=== PATIENT | female | born 1985 | race Two or more races ===

== ENCOUNTER → 2024-04-16 | Outpatient (CLI) | payer OTHER, SELFPAY ==
[2024-04-16 07:32] LABS: Misc Send Out* See Sep Rpt
[2024-04-16 09:25] LABS: Basophils % (Auto) 1 % (0-2.5); Eosinophils # (Auto) 0.1 Thou/mm3 (0.0-0.5); Eosinophils % (Auto) 2 % (0-10); Hemoglobin 12.7 g/dL (12.0-16.0); Immature Granulocytes % (Auto) 1 % (0-0); Immature Granulocytes Auto 0.04 Thou/mm3 (0.00-0.00); Lymphocytes # (Auto) 2.2 Thou/mm3 (1.0-4.8); Lymphocytes % (Auto) 34 % (10-50); Mean Corpuscular HGB Conc 32.6 g/dl (31.0-37.0); Mean Corpuscular Volume 86 fL (80-100); Monocytes # (Auto) 0.2 Thou/mm3 (0.0-0.8); Monocytes % (Auto) 3 % (0-12); Neutrophils % (Auto) 60 % (37-80); Nucleated Red Blood Cell % 0 /100 WBC (0); Platelet Count 312 Thou/mm3 (140-440); RDW Standard Deviation 48.8 fL (36.4-46.3); Red Blood Count 4.53 Miln/mm3 (4.00-5.20); White Blood Count 6.6 Thou/mm3 (3.6-11.0)
[2024-04-16 09:33] LABS: Parathyroid Hormone Intact 71.8 pg/ml (18.5-88.0)
[2024-04-16 09:34] LABS: Ferritin 12 ng/mL (7.3-270.7); Total Iron Binding Capacity 322 mcg/dL (250-425)
[2024-04-16 09:36] LABS: Alanine Aminotransferase 12 U/L (10-49); Albumin, Serum 4.2 gm/dL (3.5-5.0); Albumin/Globulin Ratio 1.4 (1.2-2.2); Alkaline Phosphatase 94 U/L (46-116); Anion Gap 7 (7-16); Aspartate Amino Transferase 20 U/L (0-34); BUN/Creatinine Ratio 15 Ratio (12-20); Bilirubin,Total 0.4 mg/dL (0.3-1.2); Blood Urea Nitrogen 9 mg/dL (9-23); Calcium 9.1 mg/dL (8.3-10.6); Calcium (Corrected) 9.1 mg/dL (8.5-10.1); Cardiac Risk Estimate 2.9 RATIO (3.7-5.6); Chloride 105 mMol/L (98-107); Cholesterol 123 mg/dL (132-200); Creatinine (Component) 0.6 mg/dL (0.6-1.3); Globulin 2.9 gm/dL (2.3-3.5); Glucose 87 mg/dL (74-106); HDL Cholesterol 42 mg/dL (40-60); LDL Cholesterol,Calculated 62 mg/dL (0-130); Osmolality,Calculated 277 (275-295); Potassium 3.5 mMol/L (3.4-5.1); Sodium 140 mMol/L (136-145); Thyroid Stimulating Hormone 1.49 uIU/mL (0.55-4.78); Total Protein 7.1 gm/dL (5.7-8.2); Triglycerides 94 mg/dL (30-150); eGFR > 60 See Note
[2024-04-16 09:49] LABS: Folate > 24.00 ng/mL (>5.38); Vitamin B12 1362 pg/mL (211-911)
[2024-04-23 06:52] LABS: Vitamin B1 (Thiamine)* 15 nmol/L (8-30); Vitamin B6, Plasma* 35.9 ng/mL (2.1-21.7)
[2024-04-25 06:31] LABS: Ceruloplasmin* 26 mg/dL (14-48); Copper* 99 mcg/dL (70-175); Direct LDL* 67 mg/dL (<100); Vitamin D, 25-OH, D2 5 ng/mL; Vitamin D, 25-OH, D3 26 ng/mL; Vitamin D, 25-OH, Total 31 ng/mL (30-100); Zinc, Plasma* 79 mcg/dL (60-130)
== END | disposition home or self-care (01) ==
LOC: COPL 07:03
PROVIDERS: PCP Family Medicine; Referring Provider Surgery; Visit Provider Surgery
DX: E56.9 Vitamin deficiency, unspecified (principal); K91.2 Postsurgical malabsorption, not elsewhere classified; J45.909 Unspecified asthma, uncomplicated; E66.811 Obesity, class 1; Z98.84 Bariatric surgery status; E66.9 Obesity, unspecified; E78.49 Other hyperlipidemia; D53.9 Nutritional anemia, unspecified; D50.9 Iron deficiency anemia, unspecified; Z13.21 Encounter for screening for nutritional disorder; E11.9 Type 2 diabetes mellitus without complications; Z13.1 Encounter for screening for diabetes mellitus; E55.9 Vitamin D deficiency, unspecified; D53.1 Other megaloblastic anemias, not elsewhere classified; E53.8 Deficiency of other specified B group vitamins
CPT/HCPCS: 36415; 80053; 80061; 82306; 82390; 82525; 82607; 82728; 82746; 83036; 83550; 83721; 83970; 84207; 84425; 84443; 84630; 85025

== ENCOUNTER → 2024-06-13 | Outpatient (CLI) | payer OTHER, SELFPAY ==
[2024-06-13 11:48] LABS: Misc Send Out* See Sep Rpt
[2024-06-22 05:05] LABS: Immunoglobulin A 373 mg/dL (47-310); Immunoglobulin G 1306 mg/dL (600-1640)
[2024-06-22 06:41] LABS: Immunoglobulin M 105 mg/dL (50-300)
== END | disposition home or self-care (01) ==
LOC: COPL 11:28
PROVIDERS: PCP Family Medicine; Referring Provider Physician Assistant; Visit Provider Physician Assistant
DX: J31.0 Chronic rhinitis (principal)
CPT/HCPCS: 36415; 82784

== ENCOUNTER 2025-03-27 02:26 | Observation (INO) | payer OTHER, BC, SELFPAY ==
[2025-03-27] VITALS (22 sets, daily range): BP systolic 98–128; BP diastolic 53–83; PULSE 63–96; RESP 14–99; TEMP 36.4–37.1; O2SAT 96–100; BMI 32.0; BMI 31.8
--- NOTE | 2025-03-27 03:04 | PD.EDADULT ---
ED General RME/HPI General Chief complaint: General Adult/Misc Complain Stated complaint: POSSIBLE FELL, LAC TO CHIN Time Seen by Provider: 03/27/25 03:04 Arrival date/time: 03/27/25 02:26 Limitations: no limitations RME / HPI RME / HPI narrative: Dr. Fall?s Main ED Evaluation: 40yo female who had a tummy tuck done at [facility] yesterday afternoon presents to the ED for a chief complaint of possible syncope. Patient states she was using the restroom when she started to feel lightheaded. Patient is not sure what happened, but next thing she remembers, she was laying in her bed and noticed she had a laceration to her chin. reports the patient was asking repetitive questions for a few minutes. Patient denies any chest pain, abdominal pain, shortness of breath, N/V/D, dysuria, or any other associated symptoms. Other PSH includes gastric bypass. Patient is currently menstruating. Patient was told her drains should be emptied every 2-3 hours and she has not had to empty them out more frequently. NKA. Of note, patient is supposed to start taking Eliquis later today. Related Data Home Medications ?Medication ?Instructions ?Recorded ?Confirmed vits no.[id number]-ferrous 1 tab PO DAILY 09/17/17 03/03/18 fumarate 28 mg-folic acid 800 mcg tablet () Allergies Allergy/AdvReac Type Severity Reaction Status Date / Time No Known Allergies Allergy Verified 03/27/25 02:27 Review of Systems Review of Systems Systems Reviewed: All systems reviewed, normal except as documented ED Exam General Limitations: Present no limitations General appearance: Present alert and in no apparent distress Head Head exam: Present other (1.5 cm laceration to the bottom of the chin with minimal bleeding with tenderness to palpation) Eye Eye exam: Present normal appearance, PERRL and EOMI ENT ENT exam: Present normal exam, normal oropharynx and mucous membranes moist Neck Neck exam: Present normal inspection, full ROM and trachea midline Chest Chest inspection: Present normal inspection and symmetric chest wall rise Respiratory Respiratory exam: Present normal lung sounds bilaterally Cardiovascular Cardiovascular exam: Present regular rate, normal rhythm and normal heart sounds Abdominal Exam Abdominal exam: Present soft and other (surgical site noted at the umbilicus; surgical site from hip to hip with dermabond and steri strips in place with drains at the lateral sites in place with bloody drainage; 2 puncture holes into the upper abdomen noted with a pain pump in place) Extremities Exam Extremities exam: Present normal inspection and full ROM; Absent pedal edema Back Exam Back exam: Present normal inspection and full ROM Neurological Exam Neurological exam: Present alert, oriented X3, CN II-XII intact and other (GCS 15) Psychiatric Psychiatric exam: Present normal affect and normal mood Skin Skin exam: Present warm, dry, intact and normal color Course Quality Measures none Orders Category Date Time Status EKG (ED ONLY) *Do not use* NOW Care 03/27/25 03:21 Completed Consult to Cardiology Stat Cons 03/27/25 05:[address] head/brain wo con Stat Exams 03/27/25 03:20 Taken EKG (ED Only) Stat Exams 03/27/25 03:21 Draft CBC Stat Lab 03/27/25 03:24 Completed CK [Creatine Kinase] Stat Lab 03/27/25 03:24 Completed CMP [Comprehensive Metabolic Panel] Stat Lab 03/27/25 03:24 Completed HCG,Qualitative Serum Stat Lab 03/27/25 03:24 Completed INR [Prothrombin Time with INR] Stat Lab 03/27/25 03:24 Completed Lactic Acid [Lactate (Lactic Acid)] Stat Lab 03/27/25 03:24 Completed Troponin I Stat Lab 03/27/25 03:24 Completed Type and Screen Stat Lab 03/27/25 03:24 Completed UA, C/S IF [Urinalysis, C/S if Indicated] Stat Lab 03/27/25 03:19 Ordered Lidocaine 1% Vial 20 ml [Xylocaine 1% 20 ML] Med 03/27/25 03:20 Discontinued 5 ml IM X1 ONE Midazolam Inj [Versed Inj] Med 03/27/25 03:14 Discontinued 4 mg IVP X1 ONE Ringers Lactated 1000 ml [Lactated Ringers] 1,000 ml Med 03/27/25 03:18 Discontinued IV 999 mls/hr Ringers Lactated 1000 ml [Lactated Ringers] 1,000 ml Med 03/27/25 05:24 Active IV 999 mls/hr Vital Signs Vital signs: Vital Signs Temperature 97.6 F 03/27/25 02:40 Pulse Rate 96 03/27/25 02:40 Respiratory Rate 19 03/27/25 02:40 Blood Pressure 98/63 03/27/25 02:40 Pulse Oximetry (%) 96 03/27/25 02:40 Oxygen Delivery Method Room Air 03/27/25 02:40 PROCEDURES: Laceration Laceration 1: Site: face (chin) Size (cm): 1.5 Description: irregular Depth: simple, single layer Pre-repair: irrigated extensively Skin layer closed with: other (dermabond and steri strips) Critical Care Time Critical Care Time Critical Care Time: Yes Total Critical Care Time (min.): 45 Attestation: Total critical care time: Approximately?36?minutes Due to a high probability of clinically significant, life threatening deterioration, the patient required my highest level of preparedness to intervene emergently and I personally spent this critical care time directly and personally managing the patient. This critical care time included obtaining a history; examining the patient; pulse oximetry; ordering and review of studies; arranging urgent treatment with development of a management plan; evaluation of patient's response to treatment; frequent reassessment; and, discussions with other providers. This critical care time was performed to assess and manage the high probability of imminent, life-threatening deterioration that could result in multi-organ failure. It was exclusive of separately billable procedures and treating other patients and teaching time. Please see MDM section and the rest of the note for further information on patient assessment and treatment Discharge Plan Prescriptions/Referrals Prescriptions/Med Rec: No Action [id number]-FA [] 28-800 mg-mcg Tablet 1 tab PO DAILY Referrals: Leonides Nath PA-C [Primary Care Provider] - In 1 week Patient/Caregiver Discharge Instructions Print Language: Arabic MDM Narrative [facility] hospital course (for use when minimal MDM required): Scribe Attestation: 03/27/25 - Tonya Leon am scribing for and in the presence of Dr. Fall. Patient is a 40-year-old female with medical history notable for asthma, gastric bypass many years ago, as well as a tummy tuck that was performed yesterday as an emergency department with concerns that she passed out overnight, hit her chin. Vital signs and exam as listed. Concern for syncope secondary to dehydration, metabolic disturbance, arrhythmia, ACS, orthostatic hypotension, delayed reaction to anesthesia blood loss from her surgical site among others. Will update patient's tetanus, irrigate patient's wound, repair of the wound, will also order CT brain, EKG, labs and fluids. 0310: Patient became clammy and pale during our conversation, states that she feels that she is going to pass out. I requested a bed for the patient. Patient moved to a bed. 0314: Patient began slumping over on her right side, became clammy, lightheaded, and had twitching to her neck and BUE. Patient placed in a trauma room. Upon arrival to the trauma room, patient speaking in complete sentences no longer twitching, is not confused did not have any urinary incontinence no tongue biting. Patient not confused. Concern that patient may have syncopal episode versus seizure however less likely given patient not postictal. Patient's is bradycardic and hypotensive. Concern for anesthetic toxicity. With the patient's permission, I disconnected her bupivacaine pump and placed sterile covers on the pump and tubing. 0400: I placed a call out to the patient's surgeon, who states they will call us back. Patient's HR is in the 60s and has a blood pressure >100. She is mentating well. I had an extensive conversation with our overnight pharmacy, who states that we do not have intra-lipids, but does not recommend them unless the patient has persistent seizures or cardiac compromise, otherwise, recommends supportive care. Recommends that we talk to warehouse stocker about the possibility of intra-lipids in the event we need them. 0410- Contacted warehouse stocker, who gave me the number to our own on-call pharmacy. 0414: Spoke with Peter, our on-call pharmacist, who states that we do have intra-lipids in the OR and/or in the pharmacy and the order is under fat emulsion . Labs 11 to leukocytosis 14.5, left shift of 83%, patient hemoglobin is 10.7, previously 12.7. Patient without any acute electrolyte abnormalities lactic acid is normal troponin not elevated. 0455: Spoke with Dr. Morales, plastic surgeon on-call, who does not like the fact that the patient syncopized twice and is bradycardic. Recommends admitting the patient and obtaining consultation with cardiology. Patient is agreeable with this plan and does not feel comfortable going home. 0519: Discussed case with Dr. Garcia, attending Dr. Subramanian from Hospitalist service regarding admission. Discussed patients ED course, exam findings, labs, and radiology results. The Hospitalist will evaluate the patient for admission. Clinical Information Provided by: patient Medical Records reviewed [facility] Meds/Rx considered, not ordered None Labs/Rad/Tests considered, not ordered None Chronic Illness/Social Conditions which may negatively complicate care or outcome(s)-explain: None or not applicable Labs Labs: interpreted by me Imaging Imaging interpretation: interpreted by me Imaging Interpretation(s): CT scan of the head without intravenous contrast (axial sections with sagittal and coronal reformats) March 27, 2025 at 0422 hours Clinical History: Fall, laceration to chin. Comparison: None available at the time of this report. Findings: No evidence of intracranial hemorrhage, mass effect or midline shift. The ventricles and CSF spaces are unremarkable. The calvarium is intact. The mastoid air cells and the visualized paranasal sinuses are clear. Impression: No evidence of intracranial hemorrhage, midline shift or calvarial fracture. This report has been electronically signed by: Justin Jones MD. Medication Administration(s) Medication Administration History Lactated Ringer's (Lactated Ringers) 1,000 mls @ 999 mls/hr IV .Q1H1M ONE Stop: 03/27/25 06:24 Discontinued Medications Lactated Ringer's (Lactated Ringers) 1,000 mls @ 999 mls/hr IV .Q1H1M ONE Stop: 03/27/25 04:18 Last Infusion: 03/27/25 05:06 Dose: Infused Documented By: Admin: 03/27/25 03:56 Dose: 999 mls/hr Documented By: SHEBA Lidocaine HCl (Lidocaine Hcl 1% 20 Ml Vial) 5 ml IM X1 ONE Stop: 03/27/25 03:21 Midazolam HCl (Midazolam Inj 1 Mg/Ml Vial 2 Ml) 4 mg IVP X1 ONE Stop: 03/27/25 03:15 Last Admin: 03/27/25 03:32 Dose: Not Given Documented By: KATERYNA Non-Admin Reason: Cancelled by Provider see above Diagnosis Differential Diagnosis ED Complaint MDM: See MDM
--- NOTE | 2025-03-27 03:20 | XR_ITS ---
Examination: CT brain head without contrast. 2-D sagittal coronal reconstructions Date and time of exam: March 27, 2025, 0432 hours INDICATIONS: Patient fell today with injury to the head, head pain CTDI: vol (mGy): 46.8 DLP: (mGycm): 855 Technique: Multiple CT axial sections of the brain have been obtained, 5 mm slice thickness. Contrast has not been administered. 2-D sagittal, coronal reconstructions have been obtained Low dose protocols were performed. One or more of the following dose reduction techniques were used; automated exposure control, adjustment of the mA and/or KV according to patient size, use of iterative reconstruction technique. Findings: No significant ventricular enlargement. Intra-axial or extra-axial hemorrhage density is not seen. No mass effect or midline shift Basal cisterns are not remarkable. Fourth ventricle is midline. Cranial vault intact. Impression: Negative for acute hemorrhage, mass effect or midline shift
--- NOTE | 2025-03-27 03:21 | EKG_ITS ---
[facility] Test Date: 2025-03-27 Pat Name: JUANJO DURANT Department: Room: - Gender: Female [employer]: : [id number] Requested By: Sanjana Garsia Order Number: [id number] Reading MD: Sanjana Garsia Measurements Intervals [place] Rate: 51 P: 6 [place]: 122 QRS: 12 QRSD: 89 T: 16 QT: 481 QTc: 446 Interpretive Statements SINUS BRADYCARDIA Compared to ECG 09/17/2017 16:18:43 Sinus rhythm no longer present /[id number]
[2025-03-27 03:32] LABS: Lactate (Lactic Acid) 1.2 mMol/L (0.4-2.0)
[2025-03-27 03:38] LABS: Basophils # (Auto) 0.0 Thou/mm3 (0.0-0.2); Basophils % (Auto) 0 % (0-2.5); Eosinophils # (Auto) 0.0 Thou/mm3 (0.0-0.5); Eosinophils % (Auto) 0 % (0-10); Hematocrit 31.6 % (36.0-46.0); Hemoglobin 10.7 g/dL (12.0-16.0); Immature Granulocytes Auto 0.05 Thou/mm3 (0.00-0.00); Lymphocytes # (Auto) 1.5 Thou/mm3 (1.0-4.8); Lymphocytes % (Auto) 11 % (10-50); Mean Corpuscular HGB Conc 33.9 g/dl (31.0-37.0); Mean Corpuscular Hemoglobin 30.4 pg (25.0-35.0); Mean Corpuscular Volume 90 fL (80-100); Monocytes # (Auto) 1.0 Thou/mm3 (0.0-0.8); Monocytes % (Auto) 7 % (0-12); Neutrophils # (Auto) 12.0 Thou/mm3 (1.8-7.7); Neutrophils % (Auto) 83 % (37-80); Nucleated Red Blood Cell # 0.00 Thou/mm3 (0.00-0.00); Nucleated Red Blood Cell % 0 /100 WBC (0); Platelet Count 277 Thou/mm3 (140-440); RDW Standard Deviation 42.8 fL (36.4-46.3); Red Blood Count 3.52 Miln/mm3 (4.00-5.20); White Blood Count 14.5 Thou/mm3 (3.6-11.0)
[2025-03-27 03:53] LABS: HCG,Qualitative Serum Negative
[2025-03-27 03:56] LABS: INR 1.0 (0.9-1.3); Prothrombin Time 11.0 Seconds (9.0-12.2)
[2025-03-27] MEDS: RINGERS LACTATED 1000 ML 1,000 ML 999 ML IV ×2 (03:56→06:35)
[2025-03-27 04:03] LABS: Alanine Aminotransferase 10 U/L (10-49); Albumin, Serum 3.6 gm/dL (3.5-5.0); Albumin/Globulin Ratio 1.5 (1.2-2.2); Alkaline Phosphatase 83 U/L (46-116); Anion Gap 8 (7-16); Aspartate Amino Transferase 15 U/L (0-34); BUN/Creatinine Ratio 17 Ratio (12-20); Bilirubin,Total 0.9 mg/dL (0.3-1.2); Blood Urea Nitrogen 10 mg/dL (9-23); Calcium 8.4 mg/dL (8.3-10.6); Calcium (Corrected) 8.7 mg/dL (8.5-10.1); Carbon Dioxide 24.6 mMol/L (20.0-31.0); Chloride 107 mMol/L (98-107); Creatine Kinase 66 U/L (34-171); Creatinine (Component) 0.6 mg/dL (0.6-1.3); Estimated Creatinine Clearance 121.6 mL/min (>60); Globulin 2.4 gm/dL (2.3-3.5); Glucose 142 mg/dL (74-106); Osmolality,Calculated 280 (275-295); Potassium 4.0 mMol/L (3.4-5.1); Sodium 140 mMol/L (136-145); Total Protein 6.0 gm/dL (5.7-8.2); Troponin I < 0.002 ng/mL (0.0-0.045); eGFR > 60 See Note
--- NOTE | 2025-03-27 06:11 | ESHP_ITS ---
<Statement entered by Edgar Mccann MD - 03/27/25 07:29> A 40-year-old female with significant past medical history of gastric bypass surgery 2022, tummy tuck done on 03/26/2025 in [facility], benign heart murmur diagnosed in childhood presented to the hospital with chief complaints of laceration on the chin and lapse of memory. Reported that she tried to get up from the bed to go to the bathroom and felt dizziness despite of which she went to the restroom by herself and did not even remember when she came back and lied down on bed.After some time, she woke up and noted to have laceration on the chin which is bleeding for which she came to the hospital. After coming to the hospital when she is getting rushed to the ER in the wheelchair, the ED doctor noted that she had 30 seconds of unresponsiveness following which she immediately regained consciousness without any confusion. Denies seizure-like activity, tongue bite, upper rolling of eyeballs at that time. Noted to have bradycardia with heart rate around 40 to 50 bpm at the time of admission. Patient noted to have subcutaneous pump of bupivacaine following tummy tuck surgery. The plastic surgeon was called and he was okay turning the pump off as the ED doctor suspected the bupivacaine could be causing the bradycardia. Immediately after turning the pump off, patient noted to have improvement in the heart rate. By the time hospitalist team arrived patient heart rate is around 70 to 80 bpm, sinus rhythm. Vitals are stable. Labs are unremarkable. EKG at the time of admission showed sinus rhythm with bradycardia with no ST T wave changes. Orthostatic vitals are ordered. Echocardiogram was ordered. Consulted suspect artist supervisor. Admitted into the telemetry for observation I have personally seen and examined the patient, agree with residents assessment and plan Patient plan of care was discussed with the attending physician, Dr. Moris Mccann, PGY2 Documentation for date of: 03/27/25 HPI History of Present Illness Chief complaint: Loss of consciousness History of present illness: This patient is a 40-year-old female with a history of a benign heart murmur since childhood, status post gastric bypass surgery, and recently had a tummy tuck procedure who presented to [facility] ED on 03/27 due to a laceration on her chin after losing consciousness. Patient was admitted under observation for syncope. The patient had a gastric bypass surgery back in March 2023 and since then has lost over 100 pounds, resulting in the patient seeking a tummy tuck procedure done at [facility]. The patient just had this procedure done yesterday, and this evening, the patient woke up to use the bathroom when she felt a whole body numbness in the bathroom, and then the next thing she remembers is waking up in bed. What concerned the patient was that she had a laceration on her chin that was bleeding and a linear bruise on her left arm. The patient's did not witness any fall as he was with their daughter at the time, but the patient's does note that the patient seemed to be repeating questions initially when he came to check in on her. The patient herself does not recall the contents of their conversation, other than that it happened. The patient does remember getting in the car and driving to the ED, and when she arrived in the ED waiting area, the patient was put on a wheelchair. As the patient was being taken from the ED waiting room area to her ED bed, the patient was observed to suddenly slump over on her right side, became clammy, and had twitching to her neck and bilateral upper extremities. EKG done at that time showed sinus bradycardia with a heart rate of 51. The patient herself does not remember this event, when she does remember is being wheeled out of the ED waiting area and into the ED proper, at the next thing she remembers is waking up on the ED bed. During the second episode, the patient did not have any sensation of numbness as she did in her first episode. ED physician was concerned for anesthetic toxicity as the patient was given a bupivacaine pump for pain control postprocedure, and so the ED physician turned the bupivacaine pump off. ED physician contacted Dr. Morales, the on-call plastic surgeon, who recommended admitting the patient and obtaining cardiology consultation. The patient is currently menstruating, but notes that her flow is not any more than usual. Additionally, patient does have 2 drains present that are sufficiently draining serosanguineous fluid. The patient denies any fever, headache, chills, chest pain, shortness of breath, abdominal pain, and dysuria. ED course: Initial vitals unremarkable Initial labs significant for WBC 14.[address] head unremarkable Patient was given 1 L of LR bolus Past Surgical History: Barry tooth removal, right knee surgery, x2 (2017, 2021), gastric bypass surgery (March 2023), tummy tuck yesterday Current Medication(s): Multivitamins including B12, vitamins for post gastric bypass Celecoxib 200 mg twice daily as needed for pain Eliquis 2.5 mg twice daily (patient has not started taking this yet) Zofran 8 mg sublingually every 8 hours as needed Gabapentin 100 mg every 12 hours (patient has only taken this for surgery) Cyclobenzaprine 10 mg every 8 hours as needed for muscle spasms Bupivacaine drip Allergies (w/ Reactions): NKDA Family History: Patient's mother has a history of epilepsy, but no one else in her family has any significant medical history that she is aware of 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 Skin: Warm, dry, intact. Head: Normocephalic, atraumatic. Eye: Normal conjunctiva, PERRL. Throat: Oral mucosa moist. No obvious lesions in oropharynx. Cardiovascular: Regular rate and rhythm, no murmur, +S1/S2. Respiratory: Lungs are clear to auscultation, respirations unlabored, no crackles, no wheezing. Gastrointestinal: Soft, non-distended. Surgical scars present with bilateral drains, drains 50-75% full of serosanguineous fluid. Extremities: No edema, no cyanosis, no clubbing. 2+ radial pulse bilaterally, 2+ pedal pulse bilaterally. Neuro: No focal deficits observed. Conversant, moving all extremities. No overt cerebellar signs/incoordination. Psychiatric: Cooperative, appropriate affect. Results: Labs 03/28/25 04:50 03/28/25 04:50 Labs: Short CBC 03/27/25 Range/Units 03:24 WBC 14.5 H (3.6-11.0) Thou/mm3 Hgb 10.7 L (12.0-16.0) g/dL Hct 31.6 L (36.0-46.0) % Plt Count 277 (140-440) Thou/mm3 BMP 03/27/25 03:24 Sodium 140 Potassium 4.0 Chloride 107 Carbon Dioxide 24.6 BUN 10 Creatinine 0.6 Glucose 142 H Calcium 8.4 Cardiac Enzymes 03/27/25 Range/Units 03:24 Total Creatine Kinase 66 (34-171) U/L Troponin I < 0.002 (0.0-0.045) ng/mL Liver Function 03/27/25 Range/Units 03:24 Total Bilirubin 0.9 (0.3-1.2) mg/dL AST 15 (0-34) U/L ALT 10 (10-49) U/L Alkaline Phosphatase 83 (46-116) U/L Albumin 3.6 (3.5-5.0) gm/dL Quality Measures Quality Measures VTE prophylaxis Medications Home Medications and Allergies Home Medications ?Medication ?Instructions ?Recorded ?Confirmed ?Type albuterol sulfate 90 mcg/actuation 2 puff inhalation Q 6H PRN 03/27/25 03/27/25 History aerosol inhaler shortness of breath or wheez ing apixaban 2.5 mg tablet (Eliquis) 2.5 mg PO BID 5 03/27/25 History celecoxib 200 mg capsule 200 mg PO Q12H 03/27/2503/11 History cyclobenzaprine 10 mg tablet 10 mg PO Q8H PRN muscle s pasm 03/27/25 03/27/25 History gabapentin 100 mg capsule 100 mg PO Q12H 03/27/2503/11 History magnesium hydroxide 400 mg/5 mL 15 ml PO [id number] 03/2703/27/25 History oral suspension (Milk of Magnesia) ondansetron 8 mg disintegrating 8 mg PO Q8H 03/27/25 1 05/28/24 History tablet Allergies Allergy/AdvReac Type Severity Reaction Status Date / Time No Known Allergies Allergy Verified 03/27/25 02:27 Visit Medications Acetaminophen (Acetaminophen 325 Mg Tablet) 650 mg PO Q6H PRN PRN Reason: Fever >101.5 or pain 1-3 Stop: 04/26/25 06:02 Celecoxib (Celecoxib 100 Mg Capsule) 200 mg PO BID PRN PRN Reason: Pain 4-6 Stop: 04/26/25 08:59 Enoxaparin Sodium (Enoxaparin Sod Inj 40 Mg/0.4 Ml Syringe) 40 mg SC QDAY MADHAV Stop: 04/10/25 08:59 Lactated Ringer's (Lactated Ringers) 1,000 mls @ 999 mls/hr IV .Q1H1M ONE Stop: 03/27/25 06:24 Lactated Ringer's (Lactated Ringers) 1,000 mls @ 75 mls/hr IV .[id number] ONE Stop: 03/27/25 19:27 Ketorolac Tromethamine (Ketorolac Inj 30 Mg/Ml Vial) 30 mg IVP Q6HR PRN PRN Reason: Pain 7-10 Stop: 04/01/25 06:07 Ondansetron HCl (Ondansetron Inj 2 Mg/Ml Inj 2 Ml) 4 mg IVP Q6H PRN; Protocol PRN Reason: NAUSEA OR VOMITING Stop: 04/26/25 06:02 Discontinued Medications Lactated Ringer's (Lactated Ringers) 1,000 mls @ 999 mls/hr IV .Q1H1M ONE Stop: 03/27/25 04:18 Last Infusion: 03/27/25 05:06 Dose: Infused Lidocaine HCl (Lidocaine Hcl 1% 20 Ml Vial) 5 ml IM X1 ONE Stop: 03/27/25 03:21 Midazolam HCl (Midazolam Inj 1 Mg/Ml Vial 2 Ml) 4 mg IVP X1 ONE Stop: 03/27/25 03:15 Last Admin: 03/27/25 03:32 Dose: Not Given Assessment & Plan Plan This patient is a 40-year-old female with a history of a benign heart murmur since childhood, status post gastric bypass surgery, and recently had a tummy tuck procedure who presented to [facility] ED on 03/27 due to a laceration on her chin after losing consciousness. Patient was admitted under observation for syncope. #Syncopal episodes #Bradycardia Patient noted to have 2 episodes where she lost consciousness, the first at home (unwitnessed) was preceded by whole body numbness, and the second without any preceding symptoms while she was being wheeled into her ED room. In both episodes, the patient has no memory of these events and stated that she did not have any confusion afterwards, however patient's did note that after the first episode, she was repeating questions. The witnessed episode in the ED had the patient becoming bradycardic with slight hypotension. ED physician contacted the patient's plastic surgeon, who recommended inpatient admission and cardiology consultation. ED physician also disconnected the patient's bupivacaine pump that she was given post tummy tuck procedure. No syncope, bradycardia, or hypotension was identified during examination on admission. Diagnostic: CT head on 03/27 negative for acute hemorrhage, mass effect, or midline shift EKG on 03/27 shows sinus bradycardia with a heart rate of 51 Treatment: Continue to hold off on bupivacaine pump Cardiology consulted, appreciate recommendations Echocardiogram ordered, pending Orthostatic vitals ordered, pending #Status post tummy tuck #Status post gastric bypass Patient had gastric bypass surgery in March 2023 and just recently had a tummy tuck procedure day before coming to the ED. The patient has 2 drains, 1 on each side of her abdomen, that is draining serosanguineous fluid. The patient was prescribed a bupivacaine pump for analgesia rather than any opiates. Bupivacaine pump may be contributing to the patient's episodes of syncope. Treatment: Pain management with Tylenol, celecoxib, and ketorolac Consider increased pain management as bupivacaine pump is disconnected now Ordered drain output measurement every shift Patient to follow-up with outpatient plastic surgery DVT Prophylaxis: Lovenox GI Prophylaxis: N/A Bowel: N/A Diet: Regular Dupree: N/A Lines: PIV Antibiotics: N/A Code Status: FULL Reason for Hospitalization: Syncope Other Barriers to Discharge: Cardiology consult Patient plan of care was discussed with the senior resident Dr. Mccann (PGY-2) and attending physician Dr. Moris Amos, PGY1 Attending Provider Attestation/Addendum I have seen and examined the patient. I was physically present for the singer portions of the services provided including history, physical exam, diagnosis, treatment plans and orders. I agree with assessment and plan of care as documented by residents. After examination of the patient and review of the clinical data I feel that this patient needs observation in the hospital for further treatment/evaluation. Even though this note was carefully revised there may still be minor errors in peripheral vascular tech due to voice recognition software. Rocío Subramanian MD
--- NOTE | 2025-03-27 06:37 | PC.NURSE ---
patient drainage right side out put 140, left side out put 150.
[2025-03-27 07:08] LABS: Collection Type, Urine Clean Catch
--- NOTE | 2025-03-27 07:14 | ECHO_ITS ---
Patient Info Name: Yudith Ram Age: 40 years : 1985 Gender: Female Ht: 157 cm Wt: 79 kg BSA: 1.90 m2 BP: 106 / 58 mmHg HR: 77 bpm Exam Date: 03/27/2025 2:05 PM Admit Date: 03/27/2025 Site: [facility] Room Number: ED2 Patient Status: I Exam Type: CA echo doppler complete Preventive Medicine Specialist: Yudith Uriostegui Ordering Physician: Edgar Mccann Study Info Indications Syncopal episodes - Primary Location: [facility] Left Ventricular Outflow Tract Name Value Normal LVOT 2D LVOT Diameter 1.9 cm LVOT Doppler LVOT Peak Velocity 159 cm/s LVOT Mean Gradient 6 mmHg LVOT VTI 33 cm LVOT VTI/AV VTI Ratio 0.9 LVOT Stroke Volume 93 ml Pulmonic Valve Name Value Normal PV Doppler PV Peak Velocity 105 cm/s Mitral Valve Name Value Normal MV Doppler MV Decel Barnes 538 cm/s2 MV PHT 54 ms MV Area (PHT) 4.1 cm2 4.0-5.0 MV Diastolic Function MV E Peak Velocity 100 cm/s MV A Peak Velocity 72 cm/s MV E/A 1.4 MV Annular TDI MV Septal e' Velocity 10.8 cm/s MV E/e' (Septal) 9.3 MV Lateral e' Velocity 12.9 cm/s MV E/e' (Lateral) 7.8 MV e' Average 11.85 cm/s MV E/e' (Average) 8.5 Tricuspid Valve Name Value Normal TV Regurgitation Doppler TR Peak Velocity 251 cm/s Estimated PAP/RSVP RA Pressure 3 mmHg <=5 PA Systolic Pressure 28 mmHg <36 RV Systolic Pressure 28 mmHg <36 TV Annular TDI TV Lateral Diane s' Velocity 17.3 cm/s >=9.5 Aortic Valve Name Value Normal AV 2D/MM AV Cusp Sep (MM) 1.4 cm AV Doppler AV Peak Velocity 191 cm/s AV Mean Gradient 9 mmHg AV VTI 37 cm AV Area (Cont Eq VTI) 2.5 cm2 >=3.0 AV Area (Cont Eq Flavio) 2.4 cm2 AV DI (Flavio) 0.83 AV Regurgitation 2D LVOT Area 2.8 cm2 Ventricles Name Value Normal LV Dimensions 2D/MM IVS Diastolic Thickness (2D) 0.9 cm 0.6-0.9 LVID Diastole (2D) 4.9 cm 3.8-5.2 LVIW Diastolic Thickness (2D) 1.2 cm 0.6-0.9 LVID Systole (2D) 3.0 cm 2.2-3.5 LVOT Diameter 1.9 cm LV Mass (2D Cubed) 188.09 g 67.00-162.00 LV Mass Index (2D Cubed) 99 g/m2 43-95 Relative Wall Thickness (2D) 0.49 <=0.42 IVS/LVIW Diastolic Thickness (2D) 0.75 0.00-1.50 LV Fractional Shortening/Ejection Fraction 2D/MM LV Fractional Shortening (2D) 39 % 27-45 LV EF (2D Teichholz) 69 % RV Dimensions 2D/MM TV Lateral Diane s' Velocity 17.3 cm/s >=9.5 Atria Name Value Normal LA Dimensions LA Volume (4C A-L) 54 ml LA Volume (BP A-L) 55 ml Left Ventricle Left ventricular chamber dimension is normal. Left ventricular systolic function is normal with visually estimated ejection fraction of 60-65%. There is concentric remodeling noted in the left ventricle. Left ventricular segmental wall motion is normal. There is normal diastolic function in the left ventricle. Right Ventricle Right ventricular chamber dimension is normal. Right ventricular systolic function is normal. Left Atrium Left atrial chamber dimension is normal. Right Atrium Right atrial chamber dimension is normal. Aortic Valve The aortic valve is trileaflet. There is no aortic valve sclerosis. There is no aortic valve stenosis with a peak velocity of 191 cm/s, mean gradient of 9 mmHg, and aortic valve area of 2.5 cm2. There is no aortic valve regurgitation. Pulmonic Valve The pulmonic valve is normal. There is no pulmonic valve stenosis. There is no pulmonic regurgitation. Mitral Valve The mitral valve has normal leaflets. There is no mitral valve stenosis. There is no mitral valve regurgitation. Tricuspid Valve The tricuspid valve leaflets are normal. There is no tricuspid valve stenosis. There is mild tricuspid valve regurgitation. No pulmonary hypertension, estimated pulmonary arterial systolic pressure is 28 mmHg and systemic blood pressure of 106 mmHg in systole. Pericardium/Pleural The pericardium appears normal. There is no pericardial effusion. No pleural effusion visualized. Inferior Vena Cava Normal inferior vena cava with >50% collapse upon inspiration consistent with normal right atrial pressure, 3 mmHg. Aorta The aortic measurements are indexed to age and body surface area. The aortic root at the sinus of Valsalva is not well visualized. The prox ascending aorta is not well visualized. Summary 1. Left ventricle size is normal and systolic function is normal. Estimated ejection fraction is 60-65%. There is normal diastolic function. 2. Right ventricle chamber size is normal and systolic function is normal. Estimated RVSP is 28 mmHg. 3. There is mild tricuspid valve regurgitation. 4. Normal IVC with estimated RA pressure 3 mmHg. Report Signatures Finalized by Angel Gusman on 03/27/2025 04:47 PM
[2025-03-27 07:15] LABS: Bilirubin,Urine Negative (Negative); Blood,Urine Negative (Negative); Clarity,Urine Clear (Clear/Hazy); Color,Urine Lt-Yellow (Lt Yel-Yel); Culture Indicated,Urine Not Indicated; Glucose, Urine 1+ (Negative); Hyaline Casts,Urine < 1 /hpf (0-1); Ketones,Urine 1+ (Negative); Leukocyte Esterase,Urine Negative (Negative); Nitrite,Urine Negative (Negative); PH,Urine 6.5 (5.0-7.0); Protein,Urine Negative (Neg - Trace); RBC,Urine 4 /hpf (0-3); Specific Gravity,Urine 1.015 (1.001-1.035); Squamous Epithelial Cell,Urine < 1 /hpf (0-5); Urobilinogen,Urine Negative mg/dL (0.0-1.0); WBC,Urine 2 /hpf (0-5)
--- NOTE | 2025-03-27 08:36 | ESCONSULT_ITS ---
<Statement entered by Theresa Quesada MD - 03/27/25 19:21> Patient was seen and examined by me personally. I have reviewed the below documentation by the team resident Dr Jasmine Ponce DO PGY-1 and agree with its findings. 40-year-old female with past medical history of gastric bypass surgery 2022, tummy tuck done on 03/26/2025 in [facility], benign heart murmur diagnosed in childhood and depression who presented to [facility] emergency department on March 27, 2025 with a chief complaint of laceration on the chin and lapse of memory, reported a similar prior episode and was admitted to the hospital for further episode for syncopal episodes. In the ER patient was noted to be bradycardic on presentation, which was attributed to patient's bupivacaine pump that was turned off by ER physician after discussion with patient's primary plastic surgeon and patient's bradycardia resolved. EKG on presentation did show sinus bradycardia, heart rate 51, QRS 89, QTc 446 No gross electrolyte abnormalities noted on admission, white count noted. Telemetry reviewed patient has been in sinus rhythm since admission. Echocardiogram today shows Left ventricle size is normal and systolic function is normal. Estimated ejection fraction is 60-65%. There is normal diastolic function. Right ventricle chamber size is normal and systolic function is normal. Estimated RVSP is 28 mmHg. There is mild tricuspid valve regurgitation. Normal IVC with estimated RA pressure 3 mmHg. Structural heart disease ruled out per echocardiogram, Orthostatic vitals 03/27: Negative lying BP 106/57, HR 69 sitting BP 101/57, HR 78 and standing BP 116/83, HR 70 Patient's episode secondary to bupivacaine, no symptoms currently patient is stable, cleared from cardiac standpoint for discharge. Patient will follow outpatient with cardiology for Holter monitoring and further syncope workup. Thank you for the consult and allowing to participate in the care of the patient. Cardiology will continue to follow. Case discussed with Attending Physician Dr. Angel Quesada MD Internal Medicine PGY-2 Disclaimer: This note was dictated by speech recognition. Minor errors in cobol programmer may be present due to voice recognition software. HPI Data of Consult Requesting Physician: Rocío Subramanian MD Admitting Provider: Rocío Subramanian MD Attending Provider: Rocío Subramanian MD Primary Care Provider: Leonides Nath PA-C Consult Narrative History of present illness: History of Present Illness: Ms Maxwell Ram is 40yF with PMH of benign heart murmur since childhood, status post gastric bypass surgery, and recently had a tummy tuck procedure presented to the ED on 03/27/2025 for an episode of loss of consciousness. Patient has a history of gastric bypass surgery performed in 2022, resulting in a weight loss of over 100 lbs. She underwent tummy tuck procedure the day prior to presentation. Later that evening, while seated on toilet, she experienced sudden numbness followed by a loss of consciousness, and woke up on her bed. The fall was unwitnessed, but family members became concerned when the patient appeared to be repetitively asking same questions. Upon arrival to ED, she experienced another brief syncopal episode while being transferred onto the ED bed. She regained consciousness spontaneously within approximately 30 seconds and returned to baseline mental status without postictal confusion. At that time, she was noted to be bradycardic, with HR in the 40s. The patient was receiving continuous bupivacaine pump for post op pain control, which was discontinued due to concern that medication effect may have contributed to the syncopal episodes. Patient was admitted and Cardiology was consulted for further evaluation of syncopal episode. ED course: Initial vitals unremarkable, Initial labs significant for WBC 14.5 and hemoglobin 10.7, CT head unremarkable In ED,Patient was given 1 L of LR bolus Medical history: As stated above Surgical history: [place] tooth removal, right knee surgery, x2 (2017, 2021), gastric bypass surgery (March 2023), tummy tuck yesterday Allergies: NKDA Medications: Multivitamins including B12, vitamins for post gastric bypass, Celecoxib 200 mg twice daily as needed for pain, Eliquis 2.5 mg twice daily (patient has not started taking this yet), Zofran 8 mg sublingually every 8 hours as needed, Gabapentin 100 mg every 12 hours (patient has only taken this for surgery), Cyclobenzaprine 10 mg every 8 hours as needed for muscle spasms, Bupivacaine drip Family history: Patient's mother has a history of epilepsy, but no one else in her family has any significant medical history that she is aware of Social history: Denies smoking cigarettes, drinking alcohol or using other illicit drugs, 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 EKG showed sinus bradycardia. Discontinue the Bupivacaine drip, ECHO was unremarkable, Continue to monitor her symptoms for today. Discharge tomorrow. Follow up outpatient for Holter monitoring. ECHO (03/27/2025): Normal LV size and function, EF 60-65%, normal diastoic function, Normal RV size and function, estimated RVSP 28mmHg, Mild TR, normal IVC with estimated RAP 3mmHg. Denies chest pain, palpation, SOB, abdominal pain, N/V, fevers or chills. cc:: cc: Rocío Subramanian MD Review of Systems Review of Systems Narrative Review of Systems: All 12 systems assessed and the patient denies unless otherwise stated in HPI Exam Vital Signs Temp Pulse Resp BP Pulse Ox O2 Del Method 98.0 F 68 18 119/66 100 Room Air 03/27/25 06:36 03/27/25 08:04 03/27/25 08:04 03/27/25 06:36 03/27/25 06:36 03/27/25 06:36 Narrative Exam General: No acute distress, well nourished, AAO x3 Eye: PERRL, EOMI, normal conjunctiva, no scleral icterus HENT: Normocephalic, atraumatic, hearing intact to conversation at normal volume, moist oral mucosa Neck: Supple, non-tender, no JVD, no lymphadenopathy Lungs: Non-labored respirations, symmetric chest rise, Clear to auscultate bilaterally, No wheezing, rhonchi, crackles Heart: Peripheral pulses intact bilaterally, Regular Rate and Rhythm. Abdomen: Soft, non-distended, Surgical scars present with bilateral drains, drains 50-75% full of serosanguineous fluid. Musculoskeletal: Normal range of motion and strength, No cyanosis or edema, No visible joint swelling Skin: Skin is warm, dry, no rashes or lesions. Psychiatric: Cooperative, appropriate mood and affect, Awake and alert, not agitated Neuro: Cranial nerves II-XII grossly intact. Strength 5/5 throughout. Sensations intact to light touch. Results Labs 03/27/25 17:53 03/27/25 03:24 Labs: Short CBC 03/27/25 Range/Units 03:24 WBC 14.5 H (3.6-11.0) Thou/mm3 Hgb 10.7 L (12.0-16.0) g/dL Hct 31.6 L (36.0-46.0) % Plt Count 277 (140-440) Thou/mm3 BMP 03/27/25 03:24 Sodium 140 Potassium 4.0 Chloride 107 Carbon Dioxide 24.6 BUN 10 Creatinine 0.6 Glucose 142 H Calcium 8.4 Cardiac Enzymes 03/27/25 Range/Units 03:24 Total Creatine Kinase 66 (34-171) U/L Troponin I < 0.002 (0.0-0.045) ng/mL Liver Function 03/27/25 Range/Units 03:24 Total Bilirubin 0.9 (0.3-1.2) mg/dL AST 15 (0-34) U/L ALT 10 (10-49) U/L Alkaline Phosphatase 83 (46-116) U/L Albumin 3.6 (3.5-5.0) gm/dL Urine 03/27/25 Range/Units 06:55 Urine Color Lt-Yellow (Lt Yel-Yel) Urine Clarity Clear (Clear/Hazy) Urine pH 6.5 (5.0-7.0) Ur Specific [place] 1.015 (1.001-1.035) Urine Protein Negative (Neg - Trace) Urine Glucose (UA) 1+ A (Negative) Quality Measures Quality Measures VTE prophylaxis Medications Home Medications and Allergies Home Medications ?Medication ?Instructions ?Recorded ?Confirmed ?Type albuterol sulfate 90 mcg/actuation inhalation PRN shor tness of breath 03/27/25 History aerosol inhaler or wheezing apixaban 2.5 mg tablet (Eliquis) 2.5 mg PO BID 2 5 03/27/25 History celecoxib 200 mg capsule 200 mg PO Q12H 03/27/2503/11 History cyclobenzaprine 10 mg tablet 10 mg PO Q8H PRN muscle s pasm 03/27/25 03/27/25 History gabapentin 100 mg capsule 100 mg PO Q12H 03/27/2503/11 History magnesium hydroxide 400 mg/5 mL 15 ml PO [id number] 03/2703/27/25 History oral suspension (Milk of Magnesia) ondansetron 8 mg disintegrating 8 mg PO Q8H 03/27/25 1 05/28/24 History tablet Allergies Allergy/AdvReac Type Severity Reaction Status Date / Time No Known Allergies Allergy Verified 03/27/25 02:27 Visit Medications Acetaminophen (Acetaminophen 325 Mg Tablet) 650 mg PO Q6H PRN PRN Reason: Fever >101.5 or pain 1-3 Stop: 04/26/25 06:02 Celecoxib (Celecoxib 100 Mg Capsule) 200 mg PO BID PRN PRN Reason: Pain 4-6 Stop: 04/26/25 08:59 Enoxaparin Sodium (Enoxaparin Sod Inj 40 Mg/0.4 Ml Syringe) 40 mg SC QDAY MADHAV Stop: 04/10/25 08:59 Lactated Ringer's (Lactated Ringers) 1,000 mls @ 75 mls/hr IV .[id number] ONE Stop: 03/27/25 19:27 Ketorolac Tromethamine (Ketorolac Inj 30 Mg/Ml Vial) 30 mg IVP Q6HR PRN PRN Reason: Pain 7-10 Stop: 04/01/25 06:07 Ondansetron HCl (Ondansetron Inj 2 Mg/Ml Inj 2 Ml) 4 mg IVP Q6H PRN; Protocol PRN Reason: NAUSEA OR VOMITING Stop: 04/26/25 06:02 Discontinued Medications Lactated Ringer's (Lactated Ringers) 1,000 mls @ 999 mls/hr IV .Q1H1M ONE Stop: 03/27/25 04:18 Last Infusion: 03/27/25 05:06 Dose: Infused Lactated Ringer's (Lactated Ringers) 1,000 mls @ 999 mls/hr IV .Q1H1M ONE Stop: 03/27/25 06:24 Last Admin: 03/27/25 06:35 Dose: 999 mls/hr Lidocaine HCl (Lidocaine Hcl 1% 20 Ml Vial) 5 ml IM X1 ONE Stop: 03/27/25 03:21 Last Admin: 03/27/25 06:35 Dose: Not Given Midazolam HCl (Midazolam Inj 1 Mg/Ml Vial 2 Ml) 4 mg IVP X1 ONE Stop: 03/27/25 03:15 Last Admin: 03/27/25 03:32 Dose: Not Given Assessment & Plan Plan Ms Maxwell Ram is 40yF with PMH of benign heart murmur since childhood, status post gastric bypass surgery, and recently had a tummy tuck procedure presented to the ED on 03/27/2025 for an episode of loss of consciousness. Patient was admitted and Cardiology was consulted for further evaluation of syncopal episode. # Syncopal episodes #Sinus Bradycardia, resolved Patient noted to have 2 episodes where she lost consciousness, the first at home (unwitnessed) was preceded by whole body numbness, and the second without any preceding symptoms while she was being wheeled into her ED room. In both episodes, the patient has no memory of these events and stated that she did not have any confusion afterwards, however patient's did note that after the first episode, she was repeating questions. The witnessed episode in the ED had the patient becoming bradycardic with slight hypotension. ED physician contacted the patient's plastic surgeon, who recommended inpatient admission and cardiology consultation. ED physician also disconnected the patient's bupivacaine pump that she was given post tummy tuck procedure. No syncope, bradycardia, or hypotension was identified during examination on admission. -CT head on 03/27 negative for acute hemorrhage, mass effect, or midline shift -EKG (03/27/2025): sinus bradycardia with a heart rate of 51 -ECHO (03/27/2025): Normal LV size and function, EF 60-65%, normal diastoic function, Normal RV size and function, estimated RVSP 28mmHg, Mild TR, normal IVC with estimated RAP 3mmHg -Orthostatic negative Plan: -Discontinue the Bupivacaine drip; consider readjusting dose with physician outpatient -Continue to monitor her symptoms for today. -Discharge tomorrow. -Follow up outpatient for Holter monitoring in office in 1 week. #Status post tummy tuck #Status post gastric bypass -Management per Primary Hospitalist team Thank you for allowing us to participate in the care of Ms Maxwell Ram. Cardiology will continue to follow. Assessment and plan discussed with my attending physician Dr. Ponce (PGY-1) - Internal medicine resident Attending Provider Attestation/Addendum I have personally seen and examined the patient separately on the above date of service and discussed the plan of care with the resident. I reviewed the resident Dr. Jasmine Ponce / Theresa Quesada consultation progress note and agree with the resident findings and plan in the note above and have also edited the documentation to reflect my findings and plan. Angel Gusman M.D. Interventional Cardiology
[2025-03-27] MEDS: RINGERS LACTATED 1000 ML 1,000 ML 75 ML IV (09:13)
[2025-03-27] MEDS: ENOXAPARIN SOD INJ 40 MG/0.4 ML SYRINGE SC (09:15)
--- NOTE | 2025-03-27 09:59 | ESPR_ITS ---
<Statement entered by Bob Bush MD - 04/04/25 09:14> I reviewed above note and agree with findings and plans. I have also personally examined the patient with medicine team and went over assessment and plan with medical team including chemist internship and resident physician. <Statement entered by Kunal Moon MD - 03/27/25 17:50> Patient was examined and case was reviewed with team including attending physician. Note reviewed, I agree with most of its contents and agree with the patient's care as documented by Dr. Hardy Patient seen today at the bedside found awake, alert, orientedx3. Admitted overnight due to multiple syncopal episodes. Vital signs and labs reviewed. Repeat labs showed decrease in hemoglobin likely dilutional however will monitor overnight for any acute drop and transfuse as needed. She has had significant output from her SOFIYA drains s/p tummy tuck procedure. ED spoke to patients surgeon who recommended discontinuing bupivacaine pump. Cardiology was also consulted for bradycardia and syncope. Will follow up on recommendations. Case discussed with my attending Dr. Rachelle Moon MD PGY-2 Documentation for date of: 03/27/25 Subjective Subjective Interval history: A 40-year-old female with significant past medical history of gastric bypass surgery 2022, recent tummy tuck done on 03/26/2025 in [place], benign heart murmur diagnosed in childhood presented to the hospital with chief complaints of laceration on the chin and syncope. Patient stated she syncopized while on toilet at home in the evening after her alex tuck surgery, leading to a laceration of her chin. She has no prior history of syncope. While in the ED waiting area, the patient was observed to suddenly slump over on her right side and subsequently became clammy. EKG done at that time showed sinus bradycardia with a heart rate of 51. Patient does have 2 drains present that are sufficiently draining serosanguineous fluid from her surgery, and a bupivacaine pump was given for pain control postprocedure. Cardiology was consulted. Patient was admitted for syncope workup. 03/27/25: Patient seen and examined at bedside. serosanguineous fluid in bilateral abdominal drains. Patient is sitting comfortably in bed with no compliant of weakness, dizziness, or vertigo. At this point, pending cardiology recs and follow up with repeat h/h. Exam Vital Signs Temp Pulse Resp BP Pulse Ox O2 Del Method 98.6 F 69 16 106/57 L 100 Room Air 03/27/25 08:59 03/27/25 09:46 03/27/25 08:59 03/27/25 09:46 03/27/25 08:59 03/27/25 08:59 Narrative Exam General: Awake and in no acute distress. A/O x 3. HEENT: Normocephalic, atraumatic, mucous membranes moist. Heart: Regular rate and rhythm Lungs: Clear to auscultation with no wheezing or crackles. Abdomen: Deferred due to recent tummy tuck surgery. Abdominal binder in place. 2 drains intact. Neurologic: Alert and oriented x3, no gross neurological deficit, and patient able to move all 4 extremities. Extremities:No pitting edema in lower extremities.. Skin: No ecchymoses. Objective Labs 03/27/25 14:44 03/27/25 03:24 Labs: Laboratory Results - last 24 hr 03/27/25 03/27/25 03:24 06:55 WBC 14.5 H RBC 3.52 L Hgb 10.7 L Hct 31.6 L MCV 90 MCH 30.4 MCHC 33.9 RDW Std Deviation 42.8 Plt Count 277 Neut % (Auto) 83 H Lymph % (Auto) 11 [place] % (Auto) 7 Eos % (Auto) 0 Baso % (Auto) 0 Neut # (Auto) 12.0 H Lymph # (Auto) 1.5 [place] # (Auto) 1.0 H Eos # (Auto) 0.0 Baso # (Auto) 0.0 Immature Gran # (Auto) 0.05 H Absolute Nucleated RBC 0.00 Immature Gran % 0 Nucleated RBC % 0 PT 11.0 INR 1.0 Sodium 140 Potassium 4.0 Chloride 107 Carbon Dioxide 24.6 Anion Gap 8 BUN 10 Creatinine 0.6 Estim Creat Clear Calc 121.6 eGFR > 60 BUN/Creatinine Ratio 17 Glucose 142 H Calculated Osmolality 280 Lactic Acid 1.2 Calcium 8.4 Corrected Calcium 8.7 Total Bilirubin 0.9 AST 15 ALT 10 Alkaline Phosphatase 83 Total Creatine Kinase 66 Troponin I < 0.002 Total Protein 6.0 Albumin 3.6 Globulin 2.4 Albumin/Globulin Ratio 1.5 HCG, Qual Negative Ur Collection Type Clean Catch Urine Color Lt-Yellow Urine Clarity Clear Urine pH 6.5 Ur Specific [place] 1.015 Urine Protein Negative Urine Glucose (UA) 1+ A Urine Ketones 1+ A Urine Blood Negative Urine Nitrite Negative Urine Bilirubin Negative Urine Urobilinogen (Auto) Negative Ur Leukocyte Esterase Negative Urine RBC 4 H Urine WBC 2 Ur Squamous Epith Cells < 1 Urine Bacteria None Hyaline Casts < 1 Ur Culture Indicated? Not Indicated Blood Type A Positive Antibody Screen NEGATIVE Blood Bank Wristband ID Yes Quality Measures Quality Measures VTE prophylaxis Assessment & Plan Assessment Current Active Medications: Generic Name Dose Route Start Last Admin Trade Name Freq PRN Reason Stop Dose Admin Acetaminophen 650 mg 03/27/25 06:03 Acetaminophen 325 Mg Tablet PO 04/26/25 06:02 Q6H PRN Fever >101.5 or pain 1-3 Celecoxib 200 mg 03/27/25 06:08 Celecoxib 100 Mg Capsule PO 04/26/25 08:59 BID PRN Pain 4-6 Enoxaparin Sodium 40 mg 03/27/25 09:00 03/27/25 09:15 Enoxaparin Sod Inj 40 Mg/0.4 Ml Syringe SC 04/10/25 08:59 40 mg QDAY MADHAV Administration Lactated Ringer's 1,000 mls @ 75 mls/hr 03/27/25 06:08 03/27/25 09:13 Lactated Ringers IV 03/27/25 19:27 75 mls/hr .[id number] ONE Administration Ketorolac Tromethamine 30 mg 03/27/25 06:08 Ketorolac Inj 30 Mg/Ml Vial IVP 04/01/25 06:07 Q6HR PRN Pain 7-10 Ondansetron HCl 4 mg 03/27/25 06:03 Ondansetron Inj 2 Mg/Ml Inj 2 Ml IVP 04/26/25 06:02 Q6H PRN NAUSEA OR VOMITING Protocol Plan This is a 40-year-old female with significant past medical history of gastric bypass surgery 2022, recent tummy tuck done on 03/26/2025 in [place], benign heart murmur diagnosed in childhood presented to the hospital with chief complaints of laceration on the chin and syncope. Admitted for syncope workup. #Syncope, likey secondary to vasovagal vs. orthostatic #Symptomatic bradycardia #Hx of benign childhood heart murmur #S/p tummy tuck surgery 03/26/25 #S/p gastric bypass in 2022 Recent tummy tuck surgery on 03/26/25. Bradycardic at 51 in the ED after withnessed syncope. - 2L LR bolus in ED - 1L LR @ rate of 75ml/hr. - cardiology consulted, appreciate recs - Daily CBC, BMP - Repeat H/H orderd due to high abdominal drains post-op - CA echo doppler - Pending TSH - Multimodal pain control #Leukocytosis #Anemia Expected given recent surgery. - Daily CBC, BMP - Continue to monitor - Transfuse if Hgb < 7 #Chin laceration Fell at home after syncopal episode - wound care Health maintenance Dispo: Pending echo DVT prophylaxis: Hold Lovenox, SCD GI prophylaxis: N/A Antibiotics: N/A Bowel Regimen: Milk of mag PRN Diet: Regular diet Lines: Peripheral IV Code status: Full code Case discussed with my senior resident Dr. Lal Case discussed with my attending Dr. Rachelle Hardy, PGY 1
[2025-03-27] MEDS: Milk Of Magnesia Susp 30 ML UDC PO (10:36)
[2025-03-27] MEDS: KETOROLAC INJ 30 MG/ML VIAL IVP ×2 (12:25→22:07)
[2025-03-27 14:51] LABS: Hematocrit 26.8 % (36.0-46.0); Hemoglobin 9.1 g/dL (12.0-16.0)
[2025-03-27] MEDS: GABAPENTIN 100 MG CAPSULE PO (15:47)
--- NOTE | 2025-03-27 16:05 | PC.NURSE ---
I CALLED AND SPOKE TO DR. VAZQUEZ, TO SEE OF HE STILL WANT ME TO START BLOOD TRANSFUSION, PER DR. VAZQUEZ, HOLD BLOOD TRANSFUSION FOR NOW
--- NOTE | 2025-03-27 16:58 | PC.NURSE ---
LATE NOTE: PT WALK TO THE BATHROOM WITH A STEADY GATE, HOWEVER, ONCE THE PT GOT BACK TO THE ROOM, SHE REPORTED THAT SHE WAS FEELING A LITTLE LIGHT HEADED BUT IT WENT AWAY, PT V/S WERE TAKE AND WERE WNL.
[2025-03-27 18:41] LABS: Hematocrit 26.9 % (36.0-46.0); Hemoglobin 9.0 g/dL (12.0-16.0)
[2025-03-28] VITALS: BP 113/53; PULSE 62; PULSE 66; RESP 14; TEMP 36.9; O2SAT 99
[2025-03-28] MEDS: GABAPENTIN 100 MG CAPSULE PO (02:26)
[2025-03-28 04:00] VITALS: BP 107/62; PULSE 69; PULSE 82; RESP 22; TEMP 36.8; O2SAT 97
[2025-03-28 05:03] VITALS: BMI 32.3
[2025-03-28 05:41] LABS: Basophils # (Auto) 0.0 Thou/mm3 (0.0-0.2); Basophils % (Auto) 0 % (0-2.5); Eosinophils # (Auto) 0.1 Thou/mm3 (0.0-0.5); Eosinophils % (Auto) 1 % (0-10); Hematocrit 25.8 % (36.0-46.0); Immature Granulocytes Auto 0.02 Thou/mm3 (0.00-0.00); Lymphocytes # (Auto) 2.3 Thou/mm3 (1.0-4.8); Lymphocytes % (Auto) 37 % (10-50); Mean Corpuscular HGB Conc 34.1 g/dl (31.0-37.0); Mean Corpuscular Hemoglobin 31.1 pg (25.0-35.0); Mean Corpuscular Volume 91 fL (80-100); Monocytes # (Auto) 0.5 Thou/mm3 (0.0-0.8); Monocytes % (Auto) 8 % (0-12); Neutrophils # (Auto) 3.3 Thou/mm3 (1.8-7.7); Neutrophils % (Auto) 54 % (37-80); Nucleated Red Blood Cell # 0.00 Thou/mm3 (0.00-0.00); Nucleated Red Blood Cell % 0 /100 WBC (0); Platelet Count 199 Thou/mm3 (140-440); RDW Standard Deviation 44.6 fL (36.4-46.3); Red Blood Count 2.83 Miln/mm3 (4.00-5.20); White Blood Count 6.2 Thou/mm3 (3.6-11.0)
[2025-03-28 05:43] LABS: Hemoglobin 8.8 g/dL (12.0-16.0)
[2025-03-28 06:18] LABS: Anion Gap 8 (7-16); BUN/Creatinine Ratio 14 Ratio (12-20); Blood Urea Nitrogen 7 mg/dL (9-23); Calcium 7.8 mg/dL (8.3-10.6); Carbon Dioxide 27.9 mMol/L (20.0-31.0); Chloride 108 mMol/L (98-107); Creatinine (Component) 0.5 mg/dL (0.6-1.3); Estimated Creatinine Clearance 146.8 mL/min (>60); Glucose 90 mg/dL (74-106); Magnesium 1.8 mg/dL (1.6-2.6); Osmolality,Calculated 284 (275-295); Phosphorous 3.4 mg/dL (2.4-5.1); Potassium 4.3 mMol/L (3.4-5.1); Sodium 144 mMol/L (136-145); Thyroid Stimulating Hormone 1.24 uIU/mL (0.55-4.78); eGFR > 60 See Note
[2025-03-28 07:25] VITALS: PULSE 78; RESP 18; RESP 97
[2025-03-28 07:59] VITALS: PULSE 83
[2025-03-28 08:00] VITALS: BP 115/69; PULSE 87; RESP 17; TEMP 37.1; O2SAT 98
[2025-03-28] MEDS: MAGNESIUM OXIDE 400 MG TABLET PO (10:06)
[2025-03-28 12:00] VITALS: BP 116/61; PULSE 83; PULSE 84; RESP 19; TEMP 37.1; O2SAT 98
--- NOTE | 2025-03-28 12:45 | ESDS_ITS ---
<Statement entered by Kunal Moon MD - 03/28/25 15:07> Patient was examined and case was reviewed with team including attending physician. Note reviewed, I agree with most of its contents and agree with the patient's care as documented by Dr. Hayley Moon MD PGY-2 Planned Discharge Date 03/28/25 DS: Providers Provider Date of admission: 03/27/25 06:03 Primary care physician: Leonides Nath PA-C Admitting Provider: Rocío Subramanian MD Attending Provider on Admission: Rocío Subramanian MD Consults: 03/27/25 05:13 Consult to Cardiology Stat Comment: Consulting Provider: Angel Gusman Attending Provider on DC: Bebo Kemp MD Discharging Provider: Jose Hardy DO Anticipated date of discharge: 03/28/25 DS: Diagnosis Problem List Completed Was Problem List Reviewed/Reconciled?: Yes Hospital Course Hospital Course Hospital course: Ms Maxwell Ram is 40yF with significant past medical history of gastric bypass surgery 2022, recent tummy tuck done on 03/26/2025 in [place], benign heart murmur diagnosed in childhood presented to the ED on 03/27/25 with chief complaints of laceration on the chin and syncope. She underwent tummy tuck procedure the day prior to presentation. Later that evening, she syncopized while on toilet at home with no recollection of her falling. The fall was unwitnessed, but family members became concerned when the patient appeared to be repetitively asking same questions. While in the ED, she experienced another brief syncopal episode while being transferred onto the ED bed. She regained consciousness spontaneously within approximately 30 seconds and returned to baseline mental status without postictal confusion. At that time, she was noted to be in sinus bradycardia, with HR in the 40s. She received 2L LR bolus while in the ED, and an additional 1L of LR on the floor. The patient was receiving continuous bupivacaine pump for post op pain control, which was discontinued due to concern that medication effect may have contributed to the syncopal episodes. Multimodal pain regimen was provided. Cardiology was consulted, agreed with discontinuing the Bupivacaine pump and consider readjusting dose with physician outpatient. They recommend to follow up outpatient for Holter monitoring in his office in 1 week. Patient was monitored for 24 hours without any syncopal episode. She denied dizziness at rest and ambulate with steady gait during this admission. Echocardiogram study was unremarkable with LVEF of 60-65%. Hgb was noted to be at 8.8 on day of discharge, given recent tummy tuck surgery, the patient was advised to continue following up with her plastic surgeon and repeat CBC in one week. At this time, patient is medically and physically stable for discharge for home. All questions and concerns addressed, plan of care discussed with patient, return precautions given. Diagnosis: #Syncope, likey secondary to vasovagal vs. orthostatic #Symptomatic bradycardia #Hx of benign childhood heart murmur #S/p tummy tuck surgery 03/26/25 #S/p gastric bypass in 2022 #Leukocytosis #Anemia #Chin laceration Discharge Plan: Follow up with primary care physician within 1 week of discharge Instructions have been explained to the patient with regards to their medicatio ns and how to take them. Patient was able to explain back to physician and nursing staff how to take their medications. Patient expressed understanding with instructions. Please have CBC drawn in 1 week to monitor Hg levels Please follow up with your plastic surgeon for further follow up with regards of your surgery. Please follow up outpatient with Dr. Gusman's office in 1 week for Holter mon itoring. Continue to take the rest of your medications as prescribed by your primary care physician. Patient has been explained that should any symptoms recur or worsen patient is instructed to return to the Emergency Department. Case discussed with my senior resident Dr. Lal Case discussed with my attending Dr. Viridiana Garcia Hayley, DO PGY 1 Status at Discharge Overall status at discharge: patient is back to baseline Time Spent with Patient Time attestation: Total time spent providing and/or coordinating discharge services: Time spent: Greater than 30 minutes Exam Vital Signs Temp Pulse Resp BP Pulse Ox O2 Del Method 98.7 F 87 17 115/69 98 Room Air 03/28/25 08:00 03/28/25 08:00 03/28/25 08:00 03/28/25 08:00 03/28/25 08:00 03/28/25 08:00 Narrative Exam General: Awake and in no acute distress. A/O x 3. HEENT: Normocephalic, atraumatic, mucous membranes moist. Heart: Regular rate and rhythm Lungs: Clear to auscultation with no wheezing or crackles. Abdomen: Abdominal binder in place. 2 drains intact. Soft, tender, but no rigidity. Neurologic: Alert and oriented x3, no gross neurological deficit, and patient able to move all 4 extremities. Extremities:No pitting edema in lower extremities.. Skin: No ecchymoses. No rash Discharge Plan Plan Patient Disposition: HOME (Self Care) Patient condition on transfer: Stable Care Plan Goals: Follow up with primary care physician within 1 week of discharge Instructions have been explained to the patient with regards to their medications and how to take them. Patient was able to explain back to physician and nursing staff how to take their medications. Patient expressed understanding with instructions. Please have CBC drawn in 1 week to monitor Hg levels Please follow up with your plastic surgeon for further follow up with regards of your surgery. Please follow up outpatient with Dr. Gusman's office in 1 week for Holter monitoring. Continue to take the rest of your medications as prescribed by your primary care physician. Patient has been explained that should any symptoms recur or worsen patient is instructed to return to the Emergency Department. Prescriptions/Referrals Prescriptions/Med Rec: Continued magnesium hydroxide [Milk of Magnesia] 400 mg/5 mL suspension 15 ml PO [id number] Patient Comments: TAKE 1 TABLESPOON EVERY 6 HOURS IF NEEDED FOR CONSTIPATION. MAX 4 TBSP IN 24 HOURS Eliquis 2.5 mg tablet 2.5 mg PO BID Patient Comments: TAKE 1 TABLET BY MOUTH 2 TIMES A DAY FOR 7 DAYS. START THE DAY AFTER SURGERY start 03/27/25 celecoxib 200 mg capsule 200 mg PO Q12H Patient Comments: TAKE 1 CAPSULE BY MOUTH EVERY 12 HOURS FOR 72 HOURS THEN CONTINUE NEEDED gabapentin 100 mg capsule 100 mg PO Q12H Patient Comments: TAKE 1 CAPSULE BY MOUTH EVERY 12 HOURS FOR 72 HOURS ONLY ondansetron 8 mg tablet,disintegrating 8 mg PO Q8H Patient Comments: PLACE 1 TABLET UNDER TONGUE 30 MINS PRIOR TO ARRIVAL TIME ON DAY OF SURGERY, THEN POST OP 1 TAB EVERY 8 HRS NEEDED cyclobenzaprine 10 mg tablet 10 mg PO Q8H PRN (Reason: muscle spasm) Patient Comments: TAKE 1 TABLET BY MOUTH EVERY 8 HOURS IF NEEDED FOR MUSCLE SPASM albuterol sulfate 90 mcg/actuation HFA aerosol inhaler 2 puff INHALATION Q6H PRN (Reason: shortness of breath or wheezing) Referrals: Leonides Nath PA-C [Primary Care Provider] Outpatient Orders (i.e. Home Health, Labs, Imaging): CBC (Routine) Timeframe: 1 Week Location: Determined by Patient Ordered By: Kunal Moon Patient/Caregiver Discharge Instructions Education Materials: Dizziness Fainting Poss Causes, Understanding Bradycardia Print Language: Sami Stand Alone Forms: Lynne Award Info., Patient Portal Info Letter, Work/Release Restrictions Discharge Order Discharge Orders: Discharge (Routine); Ordered 03/28/25 Ordered By: Kunal Moon Quality Discharge Quality Measures none MD Attestestation MD Attestation I have examined the patient, reviewed labs and imaging findings, discussed the case with the resident(s), and reviewed entered orders. I agree with the plan of care as outlined in this note. Time Spent: [address] Viridiana MD
--- NOTE | 2025-03-28 13:03 | ESPR_ITS ---
<Statement entered by Theresa Quesada MD - 03/28/25 18:01> Patient was seen and examined by me personally. I have reviewed the below documentation by the team resident Dr Jasmine Ponce DO PGY-1 and agree with its findings. 40-year-old female with past medical history of gastric bypass surgery 2022, tummy tuck done on 03/26/2025 in [facility], benign heart murmur diagnosed in childhood and depression who presented to [facility] emergency department on March 27, 2025 with a chief complaint of laceration on the chin and lapse of memory, reported a similar prior episode and was admitted to the hospital for further episode for syncopal episodes. In the ER patient was noted to be bradycardic on presentation, which was attributed to patient's bupivacaine pump that was turned off by ER physician after discussion with patient's primary plastic surgeon and patient's bradycardia resolved. EKG on presentation did show sinus bradycardia, heart rate 51, QRS 89, QTc 446 No gross electrolyte abnormalities noted on admission, white count noted. Telemetry reviewed patient has been in sinus rhythm since admission. Echocardiogram 03/28: Left ventricle size is normal and systolic function is normal. Estimated ejection fraction is 60-65%. There is normal diastolic function. Right ventricle chamber size is normal and systolic function is normal. Estimated RVSP is 28 mmHg. There is mild tricuspid valve regurgitation. Normal IVC with estimated RA pressure 3 mmHg. Structural heart disease ruled out per echocardiogram, Orthostatic vitals 03/27: Negative lying BP 106/57, HR 69 sitting BP 101/57, HR 78 and standing BP 116/83, HR 70 Patient's episode secondary to bupivacaine, no symptoms currently patient is stable, cleared from cardiac standpoint for discharge. Patient will follow outpatient with cardiology in 1 week for Holter monitoring and further syncope workup. Thank you for the consult and allowing to participate in the care of the patient. Cardiology will continue to follow. Case discussed with Attending Physician Dr. Angel Quesada MD Internal Medicine PGY-2 Disclaimer: This note was dictated by speech recognition. Minor errors in text transcriber may be present due to voice recognition software. Documentation for date of: 03/28/25 Subjective Subjective Interval history: Ms Maxwell Ram is 40yF with PMH of benign heart murmur since childhood, status post gastric bypass surgery, and recently had a tummy tuck procedure presented to the ED on 03/27/2025 for an episode of loss of consciousness. Patient has a history of gastric bypass surgery performed in 2022, resulting in a weight loss of over 100 lbs. She underwent tummy tuck procedure the day prior to presentation. Later that evening, while seated on toilet, she experienced sudden numbness followed by a loss of consciousness, and woke up on her bed. The fall was unwitnessed, but family members became concerned when the patient appeared to be repetitively asking same questions. Upon arrival to ED, she experienced another brief syncopal episode while being transferred onto the ED bed. She regained consciousness spontaneously within approximately 30 seconds and returned to baseline mental status without postictal confusion. At that time, she was noted to be bradycardic, with HR in the 40s. The patient was receiving continuous bupivacaine pump for post op pain control, which was discontinued due to concern that medication effect may have contributed to the syncopal episodes. Patient was admitted and Cardiology was consulted for further evaluation of syncopal episode. ED course: Initial vitals unremarkable, Initial labs significant for WBC 14.5 and hemoglobin 10.7, CT head unremarkable In ED,Patient was given 1 L of LR bolus Medical history: As stated above Surgical history: [place] tooth removal, right knee surgery, x2 (2017, 2021), gastric bypass surgery (March 2023), tummy tuck yesterday Allergies: NKDA Medications: Multivitamins including B12, vitamins for post gastric bypass, Celecoxib 200 mg twice daily as needed for pain, Eliquis 2.5 mg twice daily (patient has not started taking this yet), Zofran 8 mg sublingually every 8 hours as needed, Gabapentin 100 mg every 12 hours (patient has only taken this for surgery), Cyclobenzaprine 10 mg every 8 hours as needed for muscle spasms, Bupivacaine drip Family history: Patient's mother has a history of epilepsy, but no one else in her family has any significant medical history that she is aware of Social history: Denies smoking cigarettes, drinking alcohol or using other illicit drugs, 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 EKG showed sinus bradycardia. Discontinue the Bupivacaine drip, ECHO was unremarkable, Continue to monitor her symptoms for today. Discharge tomorrow. Follow up outpatient for Holter monitoring. ECHO (03/27/2025): Normal LV size and function, EF 60-65%, normal diastoic function, Normal RV size and function, estimated RVSP 28mmHg, Mild TR, normal IVC with estimated RAP 3mmHg. Denies chest pain, palpation, SOB, abdominal pain, N/V, fevers or chills. 03/28/2025: No Overnight events. Labs reviewed and patient examined at the bedside. ECHO was unremarkable and orthostatic vitals were negative. Patient's episode of syncope and bradycardia very likely resulted from Bupivacaine drip. Denies chest pain, palpation, SOB, abdominal pain, N/V, fevers or chills. Patient is free to be discharged in Cardiology standpoint. Exam Vital Signs Temp Pulse Resp BP Pulse Ox O2 Del Method 98.7 F 87 17 115/69 98 Room Air 03/28/25 08:00 03/28/25 08:00 03/28/25 08:00 03/28/25 08:00 03/28/25 08:00 03/28/25 08:00 Narrative Exam General: No acute distress, well nourished, AAO x3 Eye: PERRL, EOMI, normal conjunctiva, no scleral icterus HENT: Normocephalic, atraumatic, hearing intact to conversation at normal volume, moist oral mucosa Neck: Supple, non-tender, no JVD, no lymphadenopathy Lungs: Non-labored respirations, symmetric chest rise, Clear to auscultate bilaterally, No wheezing, rhonchi, crackles Heart: Peripheral pulses intact bilaterally, Regular Rate and Rhythm. Abdomen: Soft, non-distended, Surgical scars present with bilateral drains, drains 50-75% full of serosanguineous fluid. Musculoskeletal: Normal range of motion and strength, No cyanosis or edema, No visible joint swelling Skin: Skin is warm, dry, no rashes or lesions. Psychiatric: Cooperative, appropriate mood and affect, Awake and alert, not agitated Neuro: Cranial nerves II-XII grossly intact. Strength 5/5 throughout. Sensations intact to light touch. Objective Labs 03/28/25 04:50 03/28/25 04:50 Labs: Laboratory Results - last 24 hr 03/27/25 03/27/25 03/27/25 03:24 14:44 15:11 WBC RBC Hgb 9.1 L Hct 26.8 L MCV MCH MCHC RDW Std Deviation Plt Count Neut % (Auto) Lymph % (Auto) [place] % (Auto) Eos % (Auto) Baso % (Auto) Neut # (Auto) Lymph # (Auto) [place] # (Auto) Eos # (Auto) Baso # (Auto) Immature Gran # (Auto) Absolute Nucleated RBC Immature Gran % Nucleated RBC % Sodium Potassium Chloride Carbon Dioxide Anion Gap BUN Creatinine Estim Creat Clear Calc eGFR BUN/Creatinine Ratio Glucose Calculated Osmolality Calcium Phosphorus Magnesium TSH Blood Type A Positive Cancelled Antibody Screen NEGATIVE Cancelled Crossmatch See Detail See Detail Blood Bank Wristband ID Yes Cancelled 03/27/25 03/28/25 17:53 04:50 WBC 6.2 D RBC 2.83 L Hgb 9.0 L 8.8 L Hct 26.9 L 25.8 L MCV 91 MCH 31.1 MCHC 34.1 RDW Std Deviation 44.6 Plt Count 199 D Neut % (Auto) 54 Lymph % (Auto) 37 [place] % (Auto) 8 Eos % (Auto) 1 Baso % (Auto) 0 Neut # (Auto) 3.3 Lymph # (Auto) 2.3 [place] # (Auto) 0.5 Eos # (Auto) 0.1 Baso # (Auto) 0.0 Immature Gran # (Auto) 0.02 H Absolute Nucleated RBC 0.00 Immature Gran % 0 Nucleated RBC % 0 Sodium 144 Potassium 4.3 Chloride 108 H Carbon Dioxide 27.9 Anion Gap 8 BUN 7 L Creatinine 0.5 L Estim Creat Clear Calc 146.8 eGFR > 60 BUN/Creatinine Ratio 14 Glucose 90 D Calculated Osmolality 284 Calcium 7.8 L Phosphorus 3.4 Magnesium 1.8 TSH 1.24 Blood Type Antibody Screen Crossmatch Blood Bank Wristband ID Quality Measures Quality Measures VTE prophylaxis Assessment & Plan Assessment Current Active Medications: Generic Name Dose Route Start Last Admin Trade Name Freq PRN Reason Stop Dose Admin Acetaminophen 650 mg 03/27/25 06:03 Acetaminophen 325 Mg Tablet PO 04/26/25 06:02 Q6H PRN Fever >101.5 or pain 1-3 Celecoxib 200 mg 03/27/25 06:08 Celecoxib 100 Mg Capsule PO 04/26/25 08:59 BID PRN Pain 4-6 Cyclobenzaprine HCl 10 mg 03/27/25 14:34 Cyclobenzaprine 5 Mg Tablet PO Q8H PRN muscle spasm Enoxaparin Sodium 40 mg 03/27/25 09:00 03/27/25 09:15 Enoxaparin Sod Inj 40 Mg/0.4 Ml Syringe SC 04/10/25 08:59 40 mg On Hold: 03/27/25 15:24 QDAY MADHAV Administration Gabapentin 100 mg 03/27/25 14:45 03/28/25 02:26 Gabapentin 100 Mg Capsule PO 04/26/25 14:44 100 mg Q12H MADHAV Administration Ketorolac Tromethamine 30 mg 03/27/25 06:08 03/27/25 22:07 Ketorolac Inj 30 Mg/Ml Vial IVP 04/01/25 06:07 30 mg Q6HR PRN Administration Pain 7-10 Magnesium Hydroxide 15 ml 03/27/25 18:00 Milk Of Magnesia Susp 30 Ml Udc PO 04/26/25 17:59 Q6HR PRN CONSTIPATION Protocol Ondansetron HCl 4 mg 03/27/25 06:03 Ondansetron Inj 2 Mg/Ml Inj 2 Ml IVP 04/26/25 06:02 Q6H PRN NAUSEA OR VOMITING Protocol Plan Ms Maxwell Ram is 40yF with PMH of benign heart murmur since childhood, status post gastric bypass surgery, and recently had a tummy tuck procedure presented to the ED on 03/27/2025 for an episode of loss of consciousness. Patient was admitted and Cardiology was consulted for further evaluation of syncopal episode. #Syncopal episodes #Sinus Bradycardia, resolved Patient noted to have 2 episodes where she lost consciousness, the first at home (unwitnessed) was preceded by whole body numbness, and the second without any preceding symptoms while she was being wheeled into her ED room. In both episodes, the patient has no memory of these events and stated that she did not have any confusion afterwards, however patient's did note that after the first episode, she was repeating questions. The witnessed episode in the ED had the patient becoming bradycardic with slight hypotension. ED physician contacted the patient's plastic surgeon, who recommended inpatient admission and cardiology consultation. ED physician also disconnected the patient's bupivacaine pump that she was given post tummy tuck procedure. No syncope, bradycardia, or hypotension was identified during examination on admission. -CT head on 03/27 negative for acute hemorrhage, mass effect, or midline shift -EKG (03/27/2025): sinus bradycardia with a heart rate of 51 -ECHO (03/27/2025): Normal LV size and function, EF 60-65%, normal diastoic function, Normal RV size and function, estimated RVSP 28mmHg, Mild TR, normal IVC with estimated RAP 3mmHg -Orthostatic negative Plan: -Discontinue the Bupivacaine drip; consider readjusting dose with physician outpatient -Continue to monitor her symptoms for today. -Discharge tomorrow. -Follow up outpatient for Holter monitoring in office in 1 week. #Status post tummy tuck #Status post gastric bypass -Management per Primary Hospitalist team Thank you for allowing us to participate in the care of Ms Maxwell Ram. Cardiology will continue to follow. Assessment and plan discussed with my attending physician Dr. Uzma Ponce (PGY-1) - Internal medicine resident Attending Provider Attestation/Addendum I have personally seen and examined the patient separately on the above date of service and discussed the plan of care with the resident. I reviewed the resident Dr. Jasmine Ponce / Theresa Quesada consultation progress note and agree with the resident findings and plan in the note above and have also edited the documentation to reflect my findings and plan. Angel Gusman M.D. Interventional Cardiology
--- NOTE | 2025-03-28 13:18 | PC.SS ---
[facility] conducted bedside contact with the patient conduct initial assessment and to discuss discharge planning.? Patient confirmed demographic information.? Patient resides at home with spouse, Senthil Ram .? Patient is currently employed.? Patient does not utilize any form of DME to assist with ambulation.? Patient does not utilize home oxygen.? Patient describes the ability to complete ADL?s independently.? Patient identified spouse, Senthil Ram; as medical surrogate decision maker.? Patient?s PCP is [facility].? Patient does not participate with dialysis.? Patient does not possess any specialty providers.? Patient utilizes [facility] for medication services.? Plan is for the patient to return home at the time of discharge.? Family will provide transportation on behalf of the patient.? No further discharge needs identified by the patient.? No further intervention required at this time, social work job titles will be available to address any further concerns.? Next of Kin: Senthil Ram D/C Plan: Home
--- NOTE | 2025-03-28 14:09 | PC.LAC ---
Discharged in stable condition, with all personal belongings, discharge instructions, to private car via w/c, accompanied by and [facility] TECHNICIAN. IV and telemetry DC'd prior.
== END 2025-03-28 14:09 | disposition home or self-care (01) ==
LOC: SERX 06:04 → SERHOLD 06:27 → S2NX 18:07
PROVIDERS: Admitting Provider Student in an Organized Health Care Education/Training Program; Emergency Provider Emergency Medicine; PCP Physician Assistant; Visit Provider Student in an Organized Health Care Education/Training Program
DX: R55 Syncope and collapse (principal); R00.1 Bradycardia, unspecified; D72.829 Elevated white blood cell count, unspecified; D64.9 Anemia, unspecified; S01.81XA Laceration without foreign body of other part of head, initial encounter; S40.022A Contusion of left upper arm, initial encounter; W18.39XA Other fall on same level, initial encounter
CPT/HCPCS: 36415; 70450; 80048; 80053; 81001; 82550; 83605; 83735; 84100; 84443; 84484; 84703; 85014; 85018; 85025; 85610; 86850; 86900; 86901; 86923; 93005; 93306; 96360; 96361; 96372; 96374; 96376; 99283; G0378; J1650; J1885; J7120; A9270